=== PATIENT | female | born 1990 | race Caucasian/White ===

== ENCOUNTER 2018-08-08 14:14 | Day surgery (SDC) | payer OTHER ==
[~2018-08-08 14:14] MED LIST: CEFAZOLIN 1 GM INJ; DEXAMETHASONE 4 MG/ML 1 ML INJ; KETOROLAC 30 MG INJ; METOCLOPRAMIDE 10 MG INJ; MIDAZOLAM 1 MG/ML 2 ML INJ; ONDANSETRON 4 MG INJ; PROPOFOL 20 ML; PROPOFOL 200 MG INJ
[2018-08-08] MEDS ORDERED: HYDROmorphONE 1 MG/5 ML IV SYRINGE IV (18:00)
[2018-08-08] MEDS ORDERED: KETOROLAC 30 MG INJ IV (18:00)
[2018-08-08] MEDS ORDERED: METOCLOPRAMIDE 10 MG INJ IV (18:00)
[2018-08-08] MEDS ORDERED: EPHEDrine SULFATE 50 MG/5 ML SYG IV (18:00)
[2018-08-08] MEDS ORDERED: ALBUMIN HUMAN 5% 250 ML IV (18:00)
[2018-08-08] MEDS ORDERED: FENTAnyl 50 MCG/ML VIAL IV ×3 (18:00)
[2018-08-08] MEDS ORDERED: LABETALOL HCL 20MG INJ IV (18:00)
[2018-08-08] MEDS ORDERED: MEPERIDINE 25 MG INJ IV (18:00)
[2018-08-08] MEDS ORDERED: SUGAMMADEX SODIUM 200 MG/2 ML VIAL IV ×2 (18:37)
[2018-08-08] MEDS ORDERED: CEFAZOLIN 1 GM INJ (18:38)
[2018-08-08] MEDS ORDERED: DEXAMETHASONE 4 MG/ML 1 ML INJ (18:39)
[2018-08-08] MEDS ORDERED: MEPERIDINE /PF (100 MG/2 ML) AMPULE (18:43)
[2018-08-08] MEDS: DIPHENHYDRAMINE 50 MG INJ IV (18:58)
[2018-08-08] MEDS: ONDANSETRON 4 MG INJ IV (19:34)
[2018-08-08] MEDS: HYDROmorphONE 1 MG/5 ML IV SYRINGE IV ×2 (19:34→19:52)
[2018-08-08 20:06] LABS: RHOGAM PROFILE 1 1
[2018-08-08] MEDS: OXYCODONE/ACETAMINOPHEN (5/325) TAB PO (20:26)
== END 2018-08-08 20:45 | disposition home or self-care (01) ==
LOC: SDS 14:14
DX: O02.1 Missed abortion (principal)
CPT/HCPCS: 59820; 84703; 86850; 86885; 86900; 86901; 88305